=== PATIENT | female | born 1975 | race Caucasian/White ===

== ENCOUNTER → 2016-12-04 | Outpatient (CLI) | payer MEDICAID ==
--- NOTE | 2016-12-04 11:45 | DX ---
Esophagram History: Sensation of mass in upper esophagus. Comparison: None available. Technique: Double contrast esophagram is performed with thin and thick barium. Findings: Swallowing is grossly normal with symmetric appearance of the valleculae and piriform sinus es. Esophageal motility and distensibility are normal. Felinization of the distal esophagus is noted. The esophageal mucosal pattern appears normal. There is no hiatal hernia. No reflux is identified. A 13-mm barium tablet passed without difficulty. 1.7 minutes of fluoroscopy were utilized. Dose= 41.3 mGy. Impression: Felinization of the distal esophagus, which can be seen with reflux, although no reflux w as observed during intermittent fluoroscopic observation.
== END ==
LOC: FIMAGING 09:04
PROVIDERS: ATTEND Internal Medicine
DX: K22.8 Other specified diseases of esophagus (principal); R68.89 Other general symptoms and signs; R00.2 Palpitations; R07.89 Other chest pain; R94.31 Abnormal electrocardiogram [ECG] [EKG]